=== PATIENT | male | born 2000 | race Caucasian/White ===

== ENCOUNTER 2021-01-09 16:43 | Emergency (ER) | payer OTHER ==
[~2021-01-09] VITALS: Ht 170.2 cm; Wt 92.5 kg
== END 2021-01-09 20:29 | disposition home or self-care (01) ==
LOC: ER 16:43
DX: S00.83XA Contusion of other part of head, initial encounter (principal); S13.4XXA Sprain of ligaments of cervical spine, initial encounter; V49.9XXA Car occupant (driver) (passenger) injured in unspecified traffic accident, initial encounter; Y93.89 Activity, other specified; Y92.488 Other paved roadways as the place of occurrence of the external cause; Y99.8 Other external cause status

== ENCOUNTER 2024-03-02 13:31 | Emergency (ER) | payer OTHER ==
[~2024-03-02] VITALS: Ht 172.7 cm; Wt 104.3 kg
[2024-03-02] MEDS ORDERED: KETOROLAC TROMETHAMINE 15 MG VIAL IV STA (17:06)
[2024-03-02] MEDS ORDERED: CEFTRIAXONE SODIUM 2,000 MG VIAL IV STA (17:06)
== END 2024-03-02 18:25 | disposition home or self-care (01) ==
LOC: ER 13:32
DX: L02.415 Cutaneous abscess of right lower limb (principal)